=== PATIENT | male | born 1970 | race Caucasian/White ===

== ENCOUNTER 2016-11-27 03:47 | Emergency (ER) | payer OTHER ==
[~2016-11-27] VITALS: Ht 177.8 cm; Wt 109.5 kg
[~2016-11-27 03:47] MED LIST: AMLO2.5T78 PO; AMO500 PO; CYCL-319 PO; HYDR-762 PO; LISI10TA2 PO; NAPR-260 PO
[2016-11-27 03:55] VITALS: Ht 177.8 cm; Wt 109.5 kg
[2016-11-27] MEDS ORDERED: SOD CHLORIDE 0.9% 500 ML IV STA (04:40)
[2016-11-27 04:51] VITALS: TEMP 97.1
[2016-11-27 05:18] LABS: ADD SCAN DIFF NO
[2016-11-27 05:26] LABS: BASOPHILS % 0.4 % (0.0-2.0); EOSINOPHILS # 0.1 10^3/ul (0.0-0.5); EOSINOPHILS % 1.4 % (0.0-7.0); HEMATOCRIT 42.9 % (42.0-52.0); HEMOGLOBIN 14.8 g/dl (14.0-18.0); LYMPHOCYTES # 2.1 10^3/ul (0.8-2.9); LYMPHOCYTES % 22.2 % (15.0-51.0); MEAN CORPUSCULAR HEMOGLOBIN 29.9 pg (29.0-33.0); MEAN CORPUSCULAR HGB CONC 34.5 g/dl (32.0-37.0); MEAN CORPUSCULAR VOLUME 86.7 fl (82.0-101.0); MONOCYTE # 0.8 10^3/ul (0.3-0.9); MONOCYTES % 8.6 % (0.0-11.0); NEUTROPHIL # 6.4 10^3/ul (1.6-7.5); NEUTROPHILS % 67.1 % (39.0-77.0); PLATELET COUNT 336 10^3/UL (140-415); RED BLOOD COUNT 4.95 10^6/ul (4.70-6.10); RED CELL DISTRIBUTION WIDTH 12.4 % (11.5-14.5); WHITE BLOOD COUNT 9.5 10^3/ul (4.8-10.8)
[2016-11-27 05:40] LABS: ALBUMIN 4.3 g/dl (3.3-4.9)
[2016-11-27 05:41] LABS: POTASSIUM 3.7 mmol/L (3.5-5.1)
[2016-11-27 05:43] LABS: ALBUMIN/GLOBULIN RATIO 1.3; BILIRUBIN,INDIRECT 0.4 mg/dl (0-1.1); BILIRUBIN,TOTAL 0.4 mg/dl (0.2-1.3); CREATININE 0.86 mg/dl (0.61-1.24); TOTAL PROTEIN 7.6 g/dl (6.1-8.1)
[2016-11-27 05:44] LABS: CALCIUM 9.4 mg/dl (8.4-10.2)
[2016-11-27 05:45] LABS: ADD UMIC NO; URINE BILIRUBIN (Dip) NEGATIVE (NEGATIVE); URINE BLOOD (Dip) NEGATIVE (NEGATIVE); URINE COLOR YELLOW (YELLOW); URINE GLUCOSE (Dip) NEGATIVE (NEGATIVE); URINE KETONES (Dip) NEGATIVE (NEGATIVE); URINE LEUKOCYTE ESTERASE (Dip) NEGATIVE (NEGATIVE); URINE NITRITE (Dip) NEGATIVE (NEGATIVE); URINE TOTAL PROTEIN (Dip) NEGATIVE (NEGATIVE); URINE UROBILINOGEN (Dip) 0.2 E.U./dL (0.1-1.0)
[2016-11-27 06:04] LABS: INR 1.02; PROTIME 13.4 Sec (12.2-14.2)
[2016-11-27 06:05] LABS: PARTIAL THROMBOPLASTIN TIME 30.4 Sec (25.0-35.0)
[2016-11-27] MEDS ORDERED: ONDANSETRON 4 MG INJ IV STA (06:10)
[2016-11-27] MEDS ORDERED: morphine 4 MG/ML VIAL IV STA (06:10)
--- NOTE | 2016-11-27 06:35 | RADRPT ---
PROCEDURE: CT Abdomen and pelvis without contrast. CLINICAL INDICATION: abd pain TECHNIQUE: CT scan of the abdomen and pelvis frontal contrast was performed on a multidetector hig h-resolution CT scan. . Coronal and sagittal reformatted images were obtained from the axial [facility] e images. Standard CT scan of the abdomen pelvis without contrast protocols were performed. The total exam CTDI equals 20.42 mGy and the total exam DLP equals 1332.62 mGy-cm. One or more of the following dose reduction techniques were used: - Automated exposure control. - Adjustment of the mA and/or kV according to patient size. Use of iterative reconstruction technique. COMPARISON: None. FINDINGS: The kidneys are normal in size without evidence of calcified renal calculi hydronephrosis or intra r enal masses bilaterally. The ureters are unremarkable. The urinary bladder is unremarkable. The gallbladder is unremarkable and there is no evidence of biliary ductal dilation. Liver spleen p ancreas and adrenal glands are normal in size configuration without focal lesions. The stomach, small bowel and appendix are unremarkable. There is diverticular changes involving transverse descending and sigmoid colon. There is wall thic kening and pericolonic induration and trace free fluid involving the proximal sigmoid and distal irene cending colon consistent with acute diverticulitis. No evidence of abscess or intra-abdominal free air. Negative for abdominopelvic lymphadenopathy. Remainder the colon is unremarkable. The aorta is unremarkable. There is a fat containing left inguinal hernia but no herniated bowel or strangulation. There is right basilar atelectasis with the remainder of the lung bases unremarkabl e. There are degenerative changes lower thoracic and lumbar spine. There are no acute osseous find ings are osteoblastic/osteolytic lesions. IMPRESSION: 1. Mild acute diverticulitis involving the distal descending and sigmoid colon without abscess or i ntra-abdominal free air. 2. Left inguinal fat-containing hernia but no herniated bowel or strangulation. 3. No evidence of calcified urinary calculi or obstructive uropathy. 4. Unremarkable appendix. RPTAT:AAJJ Physician Nathalia Date Time Electronically viewed and signed by Physician Ntahalia on 11/27/2016 06:34 /
[2016-11-27 07:05] VITALS: BP 159/112; PULSE 77; RESP 18
--- NOTE | 2016-11-27 07:13 | ERD ---
ER Documentation Chief Complaint Date/Time DATE: 11/27/16 TIME: 07:08 Chief Complaint abd pain x 3-4 days, denies n/v, soft stools HPI Patient is a 46-year-old male who reports lower abdominal pain which has been progressing over the last 3-4 days. He denies any fever, nausea, vomiting, diarrhea, dysuria, hematuria, or flank, or back pain. He cannot describe the pain. Has not become focal. He states movement increases the pain and lying still helps the pain. He denies any abdominal trauma. He is never experienced this pain before. He denies any other complaints such as chest pain, shortness of breath, coughing, congestion, rhinorrhea, sore throat, or otalgia. The remainder of the systems are negative. ROS All systems reviewed and are negative except as per history of present illness. Medications Home Meds Active Scripts Amoxicillin* (Amoxicillin*) 500 Mg Cap, 500 MG PO TID for 10 Days, CAP Prov:ANAMARIA MENDIOLA NP 03/07/15 Hydrocodone Bit-Acetaminophen* ([place]*) 10-325 Mg Tablet, 1 TAB PO Q6 Y for PAIN , #15 TAB Prov:ANAMARIA MENDIOLA NP 03/07/15 Naproxen* (Naprosyn*) 500 Mg Tablet, 500 MG PO BID Y for PAIN AND/OR INFLAMMATION, #30 TAB Prov:ANAMARIA MENDIOLA NP 03/07/15 Cyclobenzaprine Hcl* (Cyclobenzaprine Hcl*) 10 Mg Tablet, 5 MG PO TID, #21 TAB Prov:ANAMARIA MENDIOLA NP 03/07/15 Reported Medications Amlodipine Besylate* (Amlodipine Besylate*) 2.5 Mg Tablet, 5 MG PO DAILY 11/12/13 Lisinopril* (Lisinopril*) 10 Mg Tablet, 20 MG PO DAILY 11/22/12 Allergies Allergies: Coded Allergies: No Known Drug Allergies (Verified Allergy, Unknown, 11/12/13) Uncoded Allergies: NKA (Allergy, Mild, 11/22/12) PMhx/Soc Anesthesia Reaction: No Hx Neurological Disorder: No Hx Respiratory Disorders: No Hx Cardiac Disorders: Yes (htn) Hx Psychiatric Problems: No Hx Miscellaneous Medical Probl: No Hx Alcohol Use: Yes Hx Substance Use: No Hx Tobacco Use: No Smoking Status: Never smoker Physical Exam Vitals Vital Signs Date Time Temp Pulse Resp B/P Pulse Ox O2 Delivery O2 Flow Rate FiO2 11/27/16 07:05 77 18 159/112 97 Room Air 11/27/16 04:51 97.1 20 161/99 97 Room Air 11/27/16 03:55 97.1 86 20 161/99 97 Physical Exam Const: [] Well-developed well-nourished male sitting on the bed calmly Head: Atraumatic Eyes: Normal Conjunctiva ENT: Normal External Ears, Nose and Mouth. Neck: Full range of motion..~ No meningismus. Resp: Clear to auscultation bilaterally Cardio: Regular rate and rhythm, no murmurs Abd: Soft, mild tenderness to palpation in the suprapubic and left lower quadrant, no rebound, masses, or guarding noted, audible bowel sounds, no flank pain Skin: No petechiae or rashes Back: No midline or flank tenderness Ext: No cyanosis, or edema Neur: Awake and alert, oriented 3, GCS of 15, nonfocal Psych: Normal Mood and Affect Result Diagram: 11/27/1644911/27/16449 Results 24 hrs Laboratory Tests Test 11/27/16 04:40 11/27/16 04:50 Urine Color YELLOW Urine Clarity CLEAR Urine pH 6.0 Urine Specific [place] >=1.030 Urine Ketones NEGATIVE Urine Nitrite NEGATIVE Urine Bilirubin NEGATIVE Urine Urobilinogen 0.2 E.U./dL Urine Leukocyte Esterase NEGATIVE Urine Hemoglobin NEGATIVE Urine Glucose NEGATIVE% Urine Total Protein NEGATIVE White Blood Count 9.510^3/ul Red Blood Count 4.9510^6/ul Hemoglobin 14.8g/dl Hematocrit 42.9% Mean Corpuscular Volume 86.7fl Mean Corpuscular Hemoglobin 29.9pg Mean Corpuscular Hemoglobin Concent 34.5g/dl Red Cell Distribution Width 12.4% Platelet Count 72319^3/UL Mean Platelet Volume 9.0fl Neutrophils % 67.1% Lymphocytes % 22.2% Monocytes % 8.6% Eosinophils % 1.4% Basophils % 0.4% Nucleated Red Blood Cells % 0.0/100WBC Neutrophils # 6.410^3/ul Lymphocytes # 2.110^3/ul Monocytes # 0.810^3/ul Eosinophils # 0.110^3/ul Basophils # 0.010^3/ul Nucleated Red Blood Cells # 0.010^3/ul Prothrombin Time 13.4Sec Prothrombin Time Ratio 1.0 INR International Normalized Ratio 1.02 Activated Partial Thromboplast Time 30.4Sec Sodium Level 143mmol/L Potassium Level 3.7mmol/L Chloride Level 103mmol/L Carbon Dioxide Level 28mmol/L Anion Gap 16 Blood Urea Nitrogen 15mg/dl Creatinine 0.86mg/dl Glucose Level 123mg/dl Calcium Level 9.4mg/dl Total Bilirubin 0.4mg/dl Direct Bilirubin 0.00mg/dl Indirect Bilirubin 0.4mg/dl Aspartate Amino Transf (AST/SGOT) 25IU/L Alanine Aminotransferase (ALT/SGPT) 42IU/L Alkaline Phosphatase 76IU/L Total Protein 7.6g/dl Albumin 4.3g/dl Globulin 3.30g/dl Albumin/Globulin Ratio 1.30 Lipase 59U/L Current Medications Medications (Trade) Dose Ordered Sig/[place] Route PRN Reason Start Time Stop Time Status Last Admin Dose Admin Sodium Chloride (NS) 500 ml @ 500 mls/hr Q1H STAT IV 11/27/16 04:40 11/27/16 05:39 DC 11/27/16 04:56 Morphine Sulfate (morphine) 4 mg ONCE STAT IV 11/27/16 06:10 11/27/16 06:11 DC Ondansetron HCl (Zofran Inj) 4 mg ONCE STAT IV 11/27/16 06:10 11/27/16 06:11 DC Procedures/MDM Differential includes but is not limited to nonspecific abdominal pain, diverticulitis, colitis, urinary tract infection CT of the abdomen and pelvis demonstrates acute diverticulitis 0711: Reevaluation of the patient at this time reveals his exam to be unchanged. Given the fact that his white count is normal, he is afebrile, he is not vomiting. It is felt that he is able to be given a trial of p.o. antibiotics as an outpatient. He has been advised to follow-up with his primary care physician in the next 2-3 days for recheck. Departure Diagnosis: Primary Impression: Diverticulitis Condition: Stable Patient Instructions: DiverticuliSANJUANA Mays November 27, 2016 07:13
[2016-11-27] MEDS ORDERED: CIPR500T4 PO (07:15)
[2016-11-27] MEDS ORDERED: HYDR-906 PO (07:16)
[2016-11-27] MEDS ORDERED: ONDA4TAB14 PO (07:16)
[2016-11-27] MEDS ORDERED: METR500T PO (07:16)
[2016-11-27] MEDS ORDERED: POLY17PO6 PO (07:17)
[2016-11-27] MEDS ORDERED: CIPROFLOXACIN 500 MG TAB PO ONE (07:30)
[2016-11-27] MEDS ORDERED: metroNIDAZOLE 500 MG TAB PO ONE (07:30)
== END 2016-11-27 07:30 | disposition home or self-care (01) ==
LOC: E/R 03:47
DX: K57.92 Diverticulitis of intestine, part unspecified, without perforation or abscess without bleeding (principal); I10 Essential (primary) hypertension
CPT/HCPCS: 36415; 74176; 80053; 81003; 83690; 85025; 85610; 85730; J7040; Z7502; Z7610

== ENCOUNTER 2017-07-01 04:25 | Emergency (ER) | payer OTHER ==
[~2017-07-01] VITALS: Ht 177.8 cm; Wt 107.0 kg
[~2017-07-01 04:25] MED LIST changes: -AMO500 PO; +AMOX500C2 PO; +CIPR500T4 PO; +HYDR-906 PO; +METR500T PO; +ONDA4TAB14 PO; +POLY17PO6 PO
[2017-07-01 04:46] VITALS: Ht 177.8 cm; Wt 107.0 kg
[2017-07-01] MEDS ORDERED: ALBUTEROL 0.083% (NEB) 2.5 MG/3 ML AMP HHN STA (05:42)
--- NOTE | 2017-07-01 05:42 | ERD ---
ER Documentation Chief Complaint Chief Complaint cough x 3 weeks, nasal congestion, pressure behind eyes HPI This 47-year-old male patient presents to emergency department today for cough and sinus presser behind eyes pt was seen and treated for sinusitis with amoxicillin, pt tool full course of medication, reports symptoms returned after ABX complete, pt reports cough ROS All systems reviewed and are negative except as per history of present illness. Medications Home Meds Active Scripts Polyethylene Glycol* (Miralax*) 17 Gm Powd.pack, 17 GM PO DAILY for CONSTIPATION , #7 0 Refills Prov:SANJUANA HULL 11/27/16 Ondansetron (Ondansetron Odt) 4 Mg Tab.rapdis, 4 MG PO Q6H Y for NAUSEA AND/OR VOMITING, #20 TAB 0 Refills Prov:SANJUANA HULL 11/27/16 Hydrocodone/Acetaminophen ([place] 5-325 Tablet) 1 Each Tablet, 1 TAB PO Q6H Y for PAIN, #20 TAB 0 Refills Prov:SANJUANA HULL 11/27/16 Metronidazole* (Flagyl*) 500 Mg Tablet, 500 MG PO TID for 10 Days, #30 TAB 0 Refills Prov:SANJUANA HULL 11/27/16 Ciprofloxacin Hcl* (Ciprofloxacin Hcl*) 500 Mg Tablet, 500 MG PO BID for 10 Days , #20 TAB 0 Refills Prov:SANJUANA HULL 11/27/16 Amoxicillin* (Amoxicillin*) 500 Mg Cap, 500 MG PO TID for 10 Days, CAP Prov:ANAMARIA MENDIOLA NP 03/07/15 Hydrocodone Bit-Acetaminophen* ([place]*) 10-325 Mg Tablet, 1 TAB PO Q6 Y for PAIN , #15 TAB Prov:ANAMARIA MENDIOLA NP 03/07/15 Naproxen* (Naprosyn*) 500 Mg Tablet, 500 MG PO BID Y for PAIN AND/OR INFLAMMATION, #30 TAB Prov:ANAMARIA MENDIOLA NP 03/07/15 Cyclobenzaprine Hcl* (Cyclobenzaprine Hcl*) 10 Mg Tablet, 5 MG PO TID, #21 TAB Prov:ANAMARIA MENDIOLA NP 03/07/15 Reported Medications Amlodipine Besylate* (Amlodipine Besylate*) 2.5 Mg Tablet, 5 MG PO DAILY 4/30/14 Lisinopril* (Lisinopril*) 10 Mg Tablet, 20 MG PO DAILY 11/22/12 Allergies Allergies: Coded Allergies: No Known Drug Allergies (Verified Allergy, Unknown, 07/01/17) Uncoded Allergies: NKA (Allergy, Mild, 11/22/12) PMhx/Soc History of Surgery: Yes (lumbar spine and right shoulder >20 years) Anesthesia Reaction: No Hx Neurological Disorder: No Hx Respiratory Disorders: No Hx Cardiac Disorders: No Hx Psychiatric Problems: No Hx Miscellaneous Medical Probl: Yes (HTN) Hx Alcohol Use: No Hx Substance Use: No Hx Tobacco Use: Yes (<1 pack cigarrettes/day) Smoking Status: Current every day smoker Physical Exam Vitals Vital Signs Date Time Temp Pulse Resp B/P Pulse Ox O2 Delivery O2 Flow Rate FiO2 07/01/17 04:46 97.5 96 20 137/88 97 Vitals stable, triage notes reviewed Physical Exam Const: Well-nourished, will well-appearing, well-hydrated 47-year-old male patient in no acute distress Eyes: Normal Conjunctiva, sensitivity, right maxillary and right frontal sinus tenderness, patient has pressure behind his eyes with leaning forward. ENT: Tympanic membranes translucent, auditory canals are clear, nasal mucosa is obstructed on right, thick yellow Neck: Full range of motion..~ No meningismus. Resp: Chest rises and falls symmetrically, expiratory wheeze auscultated throughout upper lobes. Diminished posterior bases. Cardio: Regular rate and rhythm, no murmurs Abd: Soft, non tender, nondistended Neur: Awake and alert Psych: Normal Mood and Affect Results 24 hrs Current Medications Medications (Trade) Dose Ordered Sig/[place] Route PRN Reason Start Time Stop Time Status Last Admin Dose Admin Albuterol (Proventil 0.083% (Neb)) 5 mg ONCE STAT HHN 07/01/17 05:42 07/01/17 05:44 DC Ipratropium [place] (Atrovent 0.02% (Neb)) 0.5 mg ONCE ONCE HHN 07/01/17 06:00 07/01/17 06:01 DC Procedures/MDM This 47-year-old male patient presents to emergency department for evaluation of sinus pressure, headache, photosensitivity, fatigue, chest pressure with wheezing. She reports he has been seen and treated for a sinus infection with amoxicillin 14 days ago, patient states he took the full 10 days of medication with his symptoms never completely resolving. Patient reports he has a appointment with his primary care physician in 6 days. Emergency room course includes history and physical exam, physical exam supports a purulent sinusitis right ethmoid, maxillary, possible treatment failure on amoxicillin, treatment plan includes albuterol, Atrovent hand-held nebulized treatment, patient will start on Augmentin high dose 2000 mg twice a day. Patient to follow-up with primary care physician, referral to ENT suggested. Return to emergency department for worsening of symptoms, fever, or headache. Patient is stable with no new complaints during ER course, clinically there is no current evidence to suggest meningitis, sepsis, adenoiditis, allergic rhinitis, nonallergic rhinitis, migraine or any other emergent condition appearing to require further evaluation or hospitalization. I feel the patient is stable for discharge at this time. I have discussed results, examination findings, the treatment plan with the patient and family present prior to discharge. Indications for emergent reevaluation, side effects of medication were also discussed. All questions were answered. Patient verbalizes understanding and agrees with plan of care. Departure Diagnosis: Primary Impression: Sinusitis, bacterial Condition: Good Patient Instructions: Acute Sinusitis, Self-Care for Sinusitis Additional Instructions: Thank you for for coming to [facility] for your care today. Please ask your nurse or provider if you have questions about your care today and do not leave until all your questions have been answered. Please use any medications given as directed and follow-up with your doctor (or the doctor you were referred to) in the next 2-3 days. If you do not have a primary care doctor you may follow up at the [facility] (listed below). You may also use motrin and tylenol as needed for fever and/or pain unless instructed otherwise by your provider or nurse. Indications for more urgent follow-up have been discussed, but you may return to the Emergency Department at ANY time for any worrisome or worsening symptoms. If you have abdominal pain, please know that no test or exam you received is perfect and you should follow up within 8 hours for continued pain. If you had any imaging studies today, such as an X-Ray or CT Scan, these studies will be reviewed later by a radiologist. You will be called if there are important findings that were not identified today, so make sure the contact information you provided at registration is correct. If you received any narcotic pain control medicine today, such as Vicodin, Morphine or Dilaudid, your coordination and judgment may be affected for a number of hours. Please do not drive or operate heavy machinery, and you may want someone to assist you at home. If you were given a prescription for narcotic medication, be aware that it is very addictive- use sparingly and only if necessary. BRITNEY NOE Jul 01, 2017 05:42
[2017-07-01] MEDS ORDERED: IPRATROPIUM (NEB) 0.5 MG/2.5 ML AMP HHN ONE (06:00)
[2017-07-01] MEDS ORDERED: AMOX1TAB PO (06:34)
[2017-07-01] MEDS ORDERED: ALBU18HF INHALATION (06:35)
[2017-07-03] MEDS ORDERED: AZIT250T94 PO (00:33)
== END 2017-07-01 06:53 | disposition home or self-care (01) ==
LOC: FTE 04:25
DX: J01.80 Other acute sinusitis (principal); I10 Essential (primary) hypertension; F17.210 Nicotine dependence, cigarettes, uncomplicated
CPT/HCPCS: 99284

== ENCOUNTER 2018-02-17 00:27 | Emergency (ER) | END 2018-02-17 02:00 | disposition left against medical advice (07) ==

== ENCOUNTER 2018-02-28 01:36 | Emergency (ER) | END 2018-02-28 04:40 | disposition home or self-care (01) ==

== ENCOUNTER 2018-05-14 14:11 | Emergency (ER) | END 2018-05-14 16:36 | disposition left against medical advice (07) ==

== ENCOUNTER 2018-05-15 01:28 | Inpatient (IN) | END 2018-05-15 16:30 | disposition home or self-care (01) | DRG 395 ==